=== PATIENT | female | born 2000 | race African-American/Black ===

== ENCOUNTER 2019-04-17 04:58 | Emergency (ER) | payer OTHER, SELFPAY ==
[2019-04-17] MEDS ORDERED: Ketorolac Tromethamine 30 MG/ML VIAL ONE (05:17)
== END 2019-04-17 05:45 | disposition home or self-care (01) ==
LOC: ERS 04:58
DX: J02.9 Acute pharyngitis, unspecified (principal); R59.0 Localized enlarged lymph nodes
CPT/HCPCS: 96372; J1885

== ENCOUNTER 2019-11-06 12:53 | Emergency (ER) | payer MEDICAID, SELFPAY ==
[2019-11-06 13:29] LABS: Bacteria/HPF 1+ HPF (None Seen); Bilirubin Negative (Negative); Blood, Urine 1+ (Negative); Clarity Clear (Clear); Glucose, Urine (Dipstick) Normal (Negative); Leukocyte Negative Leu/uL (Negative); Nitrite Negative (Negative); Pregnancy Test - Urine (BHCG) POSITIVE (Negative); Pregu Control Background? CLEAR/WHITE (CLR/WHITE); Pregu Control Bar Appear? YES (CONTROL BAR); Protein, Urine (Dipstick) 30 mg/dL (Neg-Trace); RBC/HPF 0-3 HPF (0-3); Specific Gravity 1.034 (1.002-1.036); Urobilinogen Normal mg/dL (Less than 2)
== END 2019-11-06 14:28 | disposition home or self-care (01) ==
LOC: ERS 12:53
DX: O99.89 Other specified diseases and conditions complicating pregnancy, childbirth and the puerperium (principal); R82.71 Bacteriuria; O99.331 Smoking (tobacco) complicating pregnancy, first trimester; F17.210 Nicotine dependence, cigarettes, uncomplicated; Z3A.01 Less than 8 weeks gestation of pregnancy
CPT/HCPCS: 81003; 81015; 81025; 99284

== ENCOUNTER 2019-11-09 16:32 | Emergency (ER) | payer MEDICAID, SELFPAY ==
[2019-11-09 17:13] LABS: #Basophils 0.1 thou/uL (0.0-0.2); #Eosinphils 0.2 thou/uL (0.0-0.7); #Lymphocytes 3.1 thou/uL (1.20-3.40); #Monocytes 0.5 thou/uL (0.11-0.59); #Neutrophils 2.8 thou/uL (1.40-6.50); %Basophils 1.1 % (0.0-1.0); %Eosinophils 2.7 % (0.0-10.0); %Lymphocytes 46.3 % (21.0-51.0); %Monocytes 7.4 % (0.0-10.0); %Neutrophils 42.4 % (42.0-75.0); Hemoglobin 13.2 g/dL (12.0-16.0); Mean Corpuscular HGB CONC 33.2 g/dL (32.0-36.0); Mean Corpuscular Hemoglobin 29.4 pg (27.0-31.0); Mean Corpuscular Volume 88.4 fL (78.0-98.0); Mean Platelet Volume 7.7 fL (7.4-10.4); Platelet Count 245 thou/uL (130-400); RBC Distribution Width 11.7 % (11.5-14.5); Red Blood Cell (RBC) Count 4.49 mill/uL (4.20-5.40); White Blood Cell (WBC) Count 6.6 thou/uL (4.8-10.8)
[2019-11-09 17:26] LABS: Bilirubin Negative (Negative); Blood, Urine Negative (Negative); Clarity Clear (Clear); Glucose, Urine (Dipstick) Normal (Negative); Leukocyte Negative Leu/uL (Negative); Nitrite Negative (Negative); Protein, Urine (Dipstick) Negative (Neg-Trace); Urobilinogen Normal mg/dL (Less than 2)
[2019-11-09 17:36] LABS: ALT (SGPT) 12 U/L (8-55); AST (SGOT) 14 U/L (5-34); Albumin 4.1 g/dL (3.5-5.0); Alkaline Phosphatase 58 U/L (40-110); Anion Gap 13 mmol/L (10-20); BUN (Urea Nitrogen) 9 mg/dL (7.0-18.7); Bilirubin, Total 0.4 mg/dL (0.2-1.2); Calc. Creatinine Clearance 0 mL/min (70-130); Calcium 9.1 mg/dL (7.8-10.44); Carbon Dioxide 23 mmol/L (22-29); Chloride 104 mmol/L (98-107); Estimated GFR-MDRD Greater than 90; Globulin 3.3 g/dL (2.4-3.5); Glucose 83 mg/dL (70-105); Potassium 3.4 mmol/L (3.5-5.1); Protein, Total 7.4 g/dL (6.0-8.3); Sodium 137 mmol/L (136-145)
[2019-11-09] MEDS ORDERED: Acetaminophen 500 MG TAB ONE (20:03)
--- NOTE | 2019-11-09 20:09 | ULT ---
TRANSABDOMINAL TRANSVAGINAL PELVIC ULTRASOUND DATE:: 11/09/2019 6:50 PM CLINICAL HISTORY: Cramping in early . COMPARISON: None. TECHNIQUE: Grayscale, color Doppler and spectral Doppler images were obtained of the pelvis see a tra nsabdominal transvaginal approach Uterus: Size: 8.6 x 4.2 x 5 cm. Mass: None Cervix: Within normal limits Endometrium: No intrauterine demonstrated. Endometrial Thickness: 13.2 mm Ovaries: Size: right measures 4.6 x 2.2 x 2.3 cm; left measures 2.8 x 2.0 x 1.7 cm Mass: 1.2 cm simple right ovarian cyst.. Flow: Normal Cul-de-sac: Minimal free fluid IMPRESSION: Findings consistent with of undetermined location. Findings may relate reflect early pregna ncy, ectopic or missed . Continued clinical and sonographic follow-up is recommended. Right ovarian cyst.
== END 2019-11-09 20:45 | disposition home or self-care (01) ==
LOC: ERS 16:32
DX: O99.89 Other specified diseases and conditions complicating pregnancy, childbirth and the puerperium (principal); R10.9 Unspecified abdominal pain; R11.0 Nausea; Z87.891 Personal history of nicotine dependence; Z79.899 Other long term (current) drug therapy; Z3A.01 Less than 8 weeks gestation of pregnancy
CPT/HCPCS: 36415; 76856; 80053; 81003; 84702; 85025

== ENCOUNTER 2020-04-01 13:59 | Outpatient (CLI) | payer OTHER ==
--- NOTE | 2020-04-01 15:18 | ULT ---
EXAM: OB ultrasound COMPARISON: None HISTORY: female patient. Evaluate anatomy and cervical length. TECHNIQUE: Multiplanar grayscale and color Doppler transabdominal sonographic images are obtained. FINDINGS: There is a single intrauterine gestation in variable presentation. Cardiac Doppler demonstr ates heart tones with a heart rate of 161 beats per minute. The placenta is located anteriorly without evidence of placenta previa. There is a normal amount of amniotic fluid with an am niotic fluid index of 17.1 centimeters. The cervical length based on transabdominal imaging measures 6.3 centimeters. biometry measurements: BPD 6.11 cm -- 24 weeks 6 days HC 23.15 cm -- 25 weeks 2 days AC 19.21 cm -- 24 weeks FL 4.89 cm -- 26 weeks 4 days The estimated gestational age by ultrasound is 25 weeks 2 days with an JIGNESH on07/13/2020. Gestational a ge by the last menstrual period is 25 weeks 3 days. The estimated weight by ultrasound is 762 g (1 pound, 11 ounces). This represents 24 percentile for weight. There is suggestion of a 4 chambered heart. The cerebellum is not well delineated on this examination .. The visualized portions of the spine, kidneys, urinary bladder, and cord insertion demonstrate a normal sonographic appearance. A three-vessel cord is not visualized, but there is flow on either side of the urinary bladder sugges ting a three-vessel cord.. No definite anomalies are seen. IMPRESSION: 1. Single intrauterine gestation in the presentation with heart tones documented. Estimated ges tational age by ultrasound is 25 weeks 2 days with JIGNESH on 07/13/2020. 2. Estimated weight is 762 g (1 pound, 2 ounces). 3. Amniotic fluid index is 17.1 centimeters.
== END 2020-04-01 14:00 | disposition home or self-care (01) ==
LOC: BICULT 13:59
PROVIDERS: ATTEND Family Medicine
DX: Z34.02 Encounter for supervision of normal first pregnancy, second trimester (principal); Z3A.25 25 weeks gestation of pregnancy
CPT/HCPCS: 76805

== ENCOUNTER 2020-04-02 01:23 | Emergency (ER) | payer OTHER | END 2020-04-02 02:13 | disposition home or self-care (01) | LOC: ERS 01:23 | DX: M25.511 Pain in right shoulder (principal); Z87.891 Personal history of nicotine dependence | CPT/HCPCS: 99283 ==

== ENCOUNTER 2020-04-28 10:23 | Emergency (ER) | payer OTHER ==
[~2020-04-28 10:23] MED LIST: Iopamidol-370 76% 500 ML 1 ML ONE
[2020-04-28] MEDS ORDERED: HYDROcodone/Acetaminophen 5/325 mg Tablet ONE (11:09)
[2020-04-28] MEDS ORDERED: Ondansetron PF 4 MG/2 ML Vial ONE (11:10)
[2020-04-28] MEDS ORDERED: Acetaminophen 500 MG TAB ONE (11:10)
[2020-04-28 11:28] LABS: #Basophils 0.1 thou/uL (0.0-0.2); #Eosinphils 0.3 thou/uL (0.0-0.7); #Lymphocytes 2.5 thou/uL (1.20-3.40); #Monocytes 0.7 thou/uL (0.11-0.59); #Neutrophils 4.9 thou/uL (1.40-6.50); %Basophils 1.3 % (0.0-1.0); %Eosinophils 3.9 % (0.0-10.0); %Lymphocytes 29.1 % (21.0-51.0); %Monocytes 7.8 % (0.0-10.0); %Neutrophils 57.8 % (42.0-75.0); Hemoglobin 12.5 g/dL (12.0-16.0); Mean Corpuscular HGB CONC 33.2 g/dL (32.0-36.0); Mean Corpuscular Volume 90.4 fL (78.0-98.0); Mean Platelet Volume 7.6 fL (7.4-10.4); Platelet Count 192 thou/uL (130-400); RBC Distribution Width 12.4 % (11.5-14.5); Red Blood Cell (RBC) Count 4.17 mill/uL (4.20-5.40); White Blood Cell (WBC) Count 8.5 thou/uL (4.8-10.8)
--- NOTE | 2020-04-28 11:29 | RAD ---
Exam: Chest one view HISTORY:Chest pain and shortness of breath. Comparison: None. FINDINGS: Cardiac silhouette: Normal Aorta: Unremarkable Pulmonary vessels: Normal Costophrenic angles: Clear LUNGS: No masses or consolidation. Pneumothorax: None Osseous abnormalities: None IMPRESSION: No acute cardiopulmonary process.
[2020-04-28 12:01] LABS: ALT (SGPT) 33 U/L (8-55); AST (SGOT) 17 U/L (5-34); Albumin 3.3 g/dL (3.5-5.0); Alkaline Phosphatase 85 U/L (40-110); Anion Gap 13 mmol/L (10-20); BUN (Urea Nitrogen) 12 mg/dL (7.0-18.7); Bilirubin, Total 0.2 mg/dL (0.2-1.2); Calc. Creatinine Clearance 0 mL/min (70-130); Carbon Dioxide 20 mmol/L (22-29); Chloride 105 mmol/L (98-107); Estimated GFR-MDRD Greater than 90; Globulin 3.4 g/dL (2.4-3.5); Glucose 86 mg/dL (70-105); Potassium 3.7 mmol/L (3.5-5.1); Protein, Total 6.7 g/dL (6.0-8.3); Sodium 134 mmol/L (136-145)
--- NOTE | 2020-04-28 12:40 | CT ---
CTA Angio Chest W WO Con 04/28/2020 12:02 PM Indication: Chest Pain Technique: Multiple CTA images were obtained of the thorax with IV contrast. 3-D rendering: MIP chu nstructed images were created and reviewed. Comparison: No relevant prior studies available. Findings: Pulmonary arteries: Timing of the contrast bolus limits evaluation of the segmental pulmonary arteri al branches. This definite central pulmonary embolus is demonstrated. Heart and Aorta: Normal appearing. Mediastinum:Normal appearing. No enlarged lymph nodes. Lungs:The lungs are clear. Pleural space: Clear. Upper Abdomen: No acute abnormality. Osseous Structures: No acute osseous abnormality. Soft tissues:No abnormality. Other findings:None. Impression: No central pulmonary embolus demonstrated.
[2020-04-28 13:51] LABS: Bilirubin Negative (Negative); Blood, Urine Negative (Negative); Clarity Clear (Clear); Glucose, Urine (Dipstick) Normal (Negative); Leukocyte Negative Leu/uL (Negative); Nitrite Negative (Negative); Protein, Urine (Dipstick) 10 mg/dL (Neg-Trace); Urobilinogen Normal mg/dL (Less than 2)
== END 2020-04-28 15:26 | disposition short-term general hospital (02) ==
LOC: ERS 10:23
DX: O16.3 Unspecified maternal hypertension, third trimester (principal); O99.89 Other specified diseases and conditions complicating pregnancy, childbirth and the puerperium; R07.9 Chest pain, unspecified; R10.9 Unspecified abdominal pain; Z3A.29 29 weeks gestation of pregnancy; Z87.891 Personal history of nicotine dependence
CPT/HCPCS: 36415; 71045; 71275; 80053; 81003; 82570; 84156; 84484; 85025; 85379; 93005; 96361; 96374; J2405; Q9967

== ENCOUNTER 2020-04-28 15:08 | Day surgery (SDC) | payer OTHER ==
[2020-04-28] MEDS ORDERED: hydrALAZINE 20 MG/ML VIAL SLOW IVP PRN (15:49)
[2020-04-28 16:08] VITALS: TEMP 98.2; BMI 41.9
--- NOTE | 2020-04-29 11:54 | SS ---
DATE OF ADMISSION: 04/28/2020 DATE OF DISCHARGE: 04/28/2020 Labor and Delivery Triage note REGULAR PHYSICIAN: Parth Carney MD EVALUATING PHYSICIAN: Galen Martínez MD CHIEF COMPLAINT: Shortness of breath, chest pain. HISTORY OF PRESENT ILLNESS: Ms. Mena is a 20-year-old black, G1, P0 with an estimated date of confinement of 07/12/2020, who presented to the ER complaining of chest pain and shortness of breath. Initial evaluation in the emergency room showed an elevated blood pressure. This quickly resolved with further blood pressure monitoring. Her workup in the emergency room has been negative, and she is brought to Labor and Delivery for monitoring. She denies ruptured membranes, vaginal bleeding, or uterine contractions. Her care has been with Dr. Carney without complications. PAST MEDICAL HISTORY: None. PAST SURGICAL HISTORY: [place] teeth. CURRENT MEDICATIONS: vitamins. ALLERGIES: NO KNOWN ALLERGIES. SOCIAL HISTORY: Denies tobacco, alcohol, or drug use. FAMILY HISTORY: Unremarkable. REVIEW OF SYSTEMS: Denies nausea, vomiting, fever, chills, blurry vision, or headache. PHYSICAL EXAMINATION: VITAL SIGNS: Blood pressures in labor and delivery are 129/61 and 95/51. GENERAL: She is pleasant and in no acute distress. She states she feels much better and is no longer having symptoms. ABDOMEN: Soft, nontender, and gravid. PELVIC: Deferred. heart rate tracing is stable. There are no decelerations. No significant uterine contractions are seen. LABORATORY DATA: White count 8.5, hemoglobin and hematocrit of 12.5 and 37.7. Platelet count 192,000. D-dimer 6.89, potassium 3.7, creatinine 0.69, glucose 86. Total bilirubin 0.2, AST and ALT are 17 and 33 respectively. Urine shows a random total protein of 13 with a urine creatinine of 82.5, giving a ratio of 0.16. IMAGING: Chest x-ray is clear. No evidence of active process. She also had a CT angiogram, which showed no evidence of pulmonary edema. ASSESSMENT: 1. 29-2/7-week intrauterine . 2. No evidence of acute cardiopulmonary process at this time. 3. Suspect reflux as potential etiology. PLAN: The patient will be dismissed to home. She was told to begin [id number] Pepcid 1 to 2 tablets twice a day along with cautions regarding fatty or spicy foods. She voiced understanding of her discharge instructions and was sent home in good condition. Job ID: [id number]
== END 2020-04-28 17:15 | disposition home or self-care (01) ==
LOC: L&D/OP 15:08
PROVIDERS: ATTEND Family Medicine
DX: O99.89 Other specified diseases and conditions complicating pregnancy, childbirth and the puerperium (principal); R06.02 Shortness of breath; R07.9 Chest pain, unspecified; Z3A.29 29 weeks gestation of pregnancy
CPT/HCPCS: 99282

== ENCOUNTER 2020-07-10 10:57 | Outpatient (CLI) | payer OTHER ==
[2020-07-11 12:36] LABS: SARS-CoV-2 MS2 Positive; SARS-CoV-2 N Gene Negative; SARS-CoV-2 S Gene Negative; SARS-CoV-2 by NAA Not Detected (NotDetected); SARS-CoV-2 orf1ab Negative
== END 2020-07-10 10:58 | disposition home or self-care (01) ==
LOC: LABSCS 10:57
PROVIDERS: ATTEND Family Medicine
DX: Z20.828 Contact with and (suspected) exposure to other viral communicable diseases (principal)
CPT/HCPCS: 87635; U0003

== ENCOUNTER 2020-07-19 23:44 | Emergency (ER) | payer OTHER ==
[2020-07-20 00:58] LABS: Bacteria/HPF None Seen HPF (None Seen); Bilirubin Negative (Negative); Blood, Urine 3+ (Negative); Clarity Clear (Clear); Glucose, Urine (Dipstick) Normal (Negative); Ketone, Urine Negative (Negative); Leukocyte 500 Leu/uL (Negative); Nitrite Negative (Negative); Protein, Urine (Dipstick) Negative (Neg-Trace); RBC/HPF 21-50 HPF (0-3); Specific Gravity, Urine 1.016 (1.002-1.036); Squamous Epithelial 0-3 HPF (0-3); Urobilinogen 3 mg/dL (Less than 2); WBC/HPF 21-50 HPF (0-3)
[2020-07-20] MEDS ORDERED: Labetalol HCl 100 MG/20 ML VIAL ONE (01:12)
[2020-07-20] MEDS ORDERED: Metoclopramide HCl 10 MG/2 ML VIAL ONE (01:12)
[2020-07-20] MEDS ORDERED: Ketorolac Tromethamine 30 MG/ML VIAL ONE (01:12)
[2020-07-20] MEDS ORDERED: Metoclopramide 10 MG/10 ML UDCUP ONE (01:12)
== END 2020-07-20 02:40 | disposition home or self-care (01) ==
LOC: ERS 23:44
DX: O13.5 Gestational [pregnancy-induced] hypertension without significant proteinuria, complicating the puerperium (principal); Z87.891 Personal history of nicotine dependence
CPT/HCPCS: 81003; 81015; J1885; J2765

== ENCOUNTER 2020-07-20 02:42 | Observation (INO) | payer OTHER ==
[2020-07-20 02:54] VITALS: BMI 46.4
[2020-07-20] MEDS ORDERED: Acetaminophen 500 MG TAB PO PRN (03:43)
[2020-07-20] MEDS ORDERED: hydrALAZINE 20 MG/ML VIAL SLOW IVP PRN (03:43)
[2020-07-20] MEDS ORDERED: Promethazine HCl 25 MG/ML VIAL IM PRN (03:43)
[2020-07-20] MEDS ORDERED: Ondansetron PF 4 MG/2 ML Vial IVP PRN (03:43)
--- NOTE | 2020-07-20 03:55 | PDOC.FPRHP ---
- History of Present Illness Chief Complaint: Headache, elevated BP History of Present Illness: 20yo , post day 6 following , presented to the ED tonight with complaint of headache and elevated BP. Pt states that she has been having a headache for the past 3 days that is located between her eyes and resolves with tylenol. Tonight when she complained about it to her mother she recommended checking her BP which was in the 150's systolic. Pt denies ever having problems with elevated blood pressures before. She did not receive Mg during her hospitalization for her delivery. She has never been on BP medications. She denies any changes to her vision, increased swelling, or any neurologic symptoms. In the ED she had a BP of 161/94 and received 10mg Labetalol, toradol, and metoclopromide with subsequent resolution of her headache. She was then brought to L&D at request of the laborist for further workup and monitoring of her BPs. Currently she is asymptomatic without any complaints. - Allergies/Adverse Reactions Allergies Allergy/AdvReac Type Severity Reaction Status Date / Time No Known Allergies Allergy Verified 07/13/20 22:51 - Home Medications Medication Instructions Recorded Confirmed Type Vits96/Iron Fum/Folic 1 tab PO DAILY 07/13/20 07/20/20 History [ Tablet] Acetaminophen [Tylenol Extra 1,000 mg PO Q6HR PRN 07/20/20 07/20/20 History Strength] Labetalol [Normodyne] 100 mg PO BID #60 tab 07/20/20 Rx - History PMHx: None PSHx: [place] teeth extraction FHx: None Social: Living with mother and child. Denies any alcohol, tobacco, or drugs - Review of Systems General: denies: fever/chills, weight/appetite/sleep changes Eyes: denies: eye pain, vision changes ENT: denies: nasal congestion, rhinorrhea Respiratory: denies: cough, shortness of breath Cardiovascular: denies: chest pain, palpitation, edema Gastrointestinal: denies: nausea, vomiting, diarrhea, constipation, abdominal pain Skin: denies: rashes, lesions Musculoskeletal: denies: pain, tenderness Neurological: reports: other (+headache). denies: numbness, syncope, seizure, weakness Psychological: denies: anxiety, depression - Vital signs BP: 136/73 HR: 80 RR: 18 Tmax: 98.5 - Physical Exam Constitutional: NAD, awake, alert and oriented, well developed HEENT: EOMI, grossly normal vision, grossly normal hearing, MMM Neck: supple, no JVD Heart: RRR, normal S1/S2, no murmurs/rubs/gallops Lungs: CTAB, no respiratory distress, good air movement Abdomen: soft, non-tender, bowel sounds present Musculoskeletal: normal structure, normal tone, ROM grossly normal Neurological: no focal deficit, DTRs 2+ (patellar), other (no pedal clonus) Skin: no rash/lesions, capillary refill <2 seconds Heme/Lymphatic: no unusual bruising or bleeding, no purpura Psychiatric: normal mood and affect, good judgment and insight, intact recent and remote memory FMR H&P: Results - Labs Result Diagrams: 07/20/20 04:17 07/20/20 04:17 FMR H&P: A/P - Plan Elevated BP in post patient - R/O Preeclampsia - one documented severe range pressure of 161/94 - originally had headache, now resolved after toradol and metoclopramide - pre-e labs: urine prot/cr ration, CBC, CMP ordered Plan: will start procardia xl 30 mg PO. will admit to obs and monitor BP and sx. if she develop another severe BP or worsening signs/sx consistent with pre-e w ill start mg. Aleksandar Robles DO - PGY2 FMR H&P: Upper Level - Plan Date/Time: 07/20/20 0350 I, Dr Reveles, agree with findings/plan as outlined by Dr Robles. Pertinent changes/additions are listed here. Dr Martínez will be assuming care.
[2020-07-20] MEDS ORDERED: NIFEdipine XL 30 MG TAB PO SCH ×2 (04:00→21:00)
[2020-07-20 04:01] VITALS: TEMP 98.7
[2020-07-20 04:14] VITALS: BP 153/72
[2020-07-20 04:25] LABS: #Eosinphils 0.5 thou/uL (0.0-0.7); #Lymphocytes 2.4 thou/uL (1.20-3.40); #Monocytes 0.6 thou/uL (0.11-0.59); #Neutrophils 6.5 thou/uL (1.40-6.50); %Basophils 0.5 % (0.0-1.0); %Eosinophils 5.4 % (0.0-10.0); %Lymphocytes 23.7 % (21.0-51.0); %Monocytes 6.2 % (0.0-10.0); %Neutrophils 64.2 % (42.0-75.0); Mean Corpuscular HGB CONC 32.7 g/dL (32.0-36.0); Mean Corpuscular Hemoglobin 29.9 pg (27.0-31.0); Mean Corpuscular Volume 91.5 fL (78.0-98.0); Mean Platelet Volume 7.6 fL (7.4-10.4); Platelet Count 227 thou/uL (130-400); RBC Distribution Width 12.9 % (11.5-14.5); Red Blood Cell (RBC) Count 4.02 mill/uL (4.20-5.40); White Blood Cell (WBC) Count 10.1 thou/uL (4.8-10.8)
[2020-07-20 04:28] LABS: Protein, Urine Random Quant Less than 10 mg/dL (1-14)
[2020-07-20 04:52] LABS: ALT (SGPT) 29 U/L (8-55); AST (SGOT) 13 U/L (5-34); Albumin 3.2 g/dL (3.5-5.0); Alkaline Phosphatase 133 U/L (40-110); Anion Gap 14 mmol/L (10-20); BUN (Urea Nitrogen) 15 mg/dL (7.0-18.7); Bilirubin, Total 0.4 mg/dL (0.2-1.2); Calc. Creatinine Clearance 217 mL/min (70-130); Calcium 8.6 mg/dL (7.8-10.44); Carbon Dioxide 22 mmol/L (22-29); Chloride 106 mmol/L (98-107); Estimated GFR-MDRD Greater than 90; Globulin 3.2 g/dL (2.4-3.5); Glucose 81 mg/dL (70-105); Potassium 3.7 mmol/L (3.5-5.1); Protein, Total 6.4 g/dL (6.0-8.3); Sodium 138 mmol/L (136-145)
--- NOTE | 2020-07-20 09:57 | PDOC.PP ---
Post Progress Note Post Day #: 6 Subjective: Patient reports feeling well this AM. Denies any recurrent HAs since admission. Denies any vision changes, chest pain or edema. Per chart review all BPs have under severe range since arrival to the floor. PO intake tolerated: yes Ambulation: yes Vital Signs (12 hours) Temp Pulse Resp BP BP 07/20/20 04:12 77 153/72 H 07/20/20 03:58 98.7 F 07/20/20 03:45 98.7 F 07/20/20 02:51 98.5 F 80 18 136/73 Weight Weight 115.212 kg - Physical Examination General: NAD Respiratory: non-labored breathing Neurological: no gross focal deficits Psychiatric: A&Ox3, normal affect Result Diagrams: 07/20/20 04:17 07/20/20 04:17 (1) Elevated blood pressure reading Code(s): R03.0 - ELEVATED BLOOD-PRESSURE READING, W/O DIAGNOSIS OF HTN Status: Acute - Assessment/Plan 20YO who is PP day #6 admitted for severe range blood pressures & pre- eclampsia workup. Elevated BPs, concern for pre-e: - Labwork negative & no severe range pressures since arrival to the floor. Low suspicion for pre-e. No elevated BPs since nifedipine XL 30mg @ ~0400. No pre-e symtpoms since arrival to the floor as well. Discussed with patient possibility of being discharged with close follow-up & home BP monitoring & patient agreeable to this. PP day #6: - Aware, continue routine PP care. Dispo: Will d/c home with close follow-up w/ PCP next week & instructions to continue home BP monitoring as noted above. Addendum - Attending - Attending Attestation Date/Time: 07/20/20 1038 I personally evaluated the patient and discussed the management with Dr. Florez. PP patient with single elevated BP and normal labs, no evidence of PIH. Home on Labetalol with BP checks. I agree with the History, Examination, Assessment and Plan documented above.
== END 2020-07-20 10:25 | disposition home or self-care (01) ==
LOC: L&D/OP 02:42 → L&D 03:50
PROVIDERS: ADMIT Family Medicine; ATTEND Family Medicine
DX: O99.89 Other specified diseases and conditions complicating pregnancy, childbirth and the puerperium (principal); R03.0 Elevated blood-pressure reading, without diagnosis of hypertension; R51 Headache; Z79.899 Other long term (current) drug therapy
CPT/HCPCS: 36415; 80053; 81003; 81015; 82570; 84156; 85025; 96365; 96375; 99285; G0378; J1885; J2765

== ENCOUNTER 2020-10-13 17:34 | Emergency (ER) | payer OTHER ==
--- NOTE | 2020-10-13 18:05 | RAD ---
Chest AP view INDICATION: Left-sided chest pain COMPARISON: April 28, 2020 FINDINGS: Lungs: The lungs are clear Cardiac silhouette: The cardiomediastinal silhouette appears within normal limits. Pulmonary vasculature: Normal Pleural spaces: No pleural effusion or pneumothorax is demonstrated. Upper abdomen: No abnormality seen. Osseous structures: No acute osseous abnormality. Additional findings: None. IMPRESSION: No acute cardiopulmonary abnormality.
[2020-10-13 18:13] LABS: #Basophils 0.1 thou/uL (0.0-0.2); #Eosinphils 0.6 thou/uL (0.0-0.7); #Lymphocytes 3.6 thou/uL (1.20-3.40); #Monocytes 0.6 thou/uL (0.11-0.59); #Neutrophils 3.7 thou/uL (1.40-6.50); %Basophils 0.9 % (0.0-1.0); %Eosinophils 6.9 % (0.0-10.0); %Lymphocytes 41.9 % (21.0-51.0); %Monocytes 6.8 % (0.0-10.0); %Neutrophils 43.5 % (42.0-75.0); Hemoglobin 13.2 g/dL (12.0-16.0); Mean Corpuscular Hemoglobin 29.5 pg (27.0-31.0); Mean Corpuscular Volume 89.1 fL (78.0-98.0); Mean Platelet Volume 7.2 fL (7.4-10.4); Platelet Count 257 thou/uL (130-400); RBC Distribution Width 12.8 % (11.5-14.5); Red Blood Cell (RBC) Count 4.48 mill/uL (4.20-5.40); White Blood Cell (WBC) Count 8.6 thou/uL (4.8-10.8)
[2020-10-13 18:34] LABS: ALT (SGPT) 19 U/L (8-55); AST (SGOT) 14 U/L (5-34); Albumin 3.9 g/dL (3.5-5.0); Alkaline Phosphatase 64 U/L (40-110); Anion Gap 14 mmol/L (10-20); BUN (Urea Nitrogen) 12 mg/dL (7.0-18.7); Bilirubin, Total 0.2 mg/dL (0.2-1.2); Calc. Creatinine Clearance 0 mL/min (70-130); Calcium 8.7 mg/dL (7.8-10.44); Carbon Dioxide 22 mmol/L (22-29); Chloride 105 mmol/L (98-107); Globulin 3.6 g/dL (2.4-3.5); Glucose 88 mg/dL (70-105); Potassium 4.2 mmol/L (3.5-5.1); Protein, Total 7.5 g/dL (6.0-8.3); Sodium 137 mmol/L (136-145)
--- NOTE | 2020-10-18 16:51 | EKG ---
Test Reason : Blood Pressure : / mmHG Vent. Rate : 076 BPM Atrial Rate : 076 BPM P-R Int : 148 ms QRS Dur : 086 ms QT Int : 368 ms P-R-T Axes : 028 022 007 degrees QTc Int : 414 ms Normal sinus rhythm Normal ECG Confirmed by JOSUÉ MALONEY ([id number]), subeditor DESMOND MARK ([id number]) on 10/18/2020 4:51:18 PM Referred By: Confirmed By:JOSUÉ Freedman
== END 2020-10-13 20:21 | disposition home or self-care (01) ==
LOC: ERS 17:34
DX: R07.89 Other chest pain (principal); Z87.891 Personal history of nicotine dependence
CPT/HCPCS: 36415; 71045; 80053; 85025; 93005

== ENCOUNTER 2021-01-27 09:35 | Outpatient (CLI) | payer OTHER | END 2021-01-27 09:36 | disposition home or self-care (01) | LOC: BICULT 09:35 | PROVIDERS: ATTEND Family Medicine | DX: O09.92 Supervision of high risk pregnancy, unspecified, second trimester (principal); Z3A.20 20 weeks gestation of pregnancy | CPT/HCPCS: 76805 ==

== ENCOUNTER 2021-06-27 22:26 | Emergency (ER) | payer OTHER ==
[2021-06-27 23:12] LABS: #Lymphocytes 3.6 thou/uL (1.20-3.40); #Monocytes 0.7 thou/uL (0.11-0.59); #Neutrophils 5.1 thou/uL (1.40-6.50); %Lymphocytes 34.2 % (21.0-51.0); %Monocytes 6.7 % (0.0-10.0); %Neutrophils 49.2 % (42.0-75.0); Hemoglobin 12.8 g/dL (12.0-16.0); Mean Corpuscular HGB CONC 33.1 g/dL (32.0-36.0); Mean Corpuscular Volume 87.5 fL (78.0-98.0); Mean Platelet Volume 7.6 fL (7.4-10.4); Platelet Count 243 thou/uL (130-400); RBC Distribution Width 12.9 % (11.5-14.5); Red Blood Cell (RBC) Count 4.41 mill/uL (4.20-5.40); White Blood Cell (WBC) Count 10.4 thou/uL (4.8-10.8)
[2021-06-27 23:24] LABS: Bilirubin Negative (Negative); Blood, Urine 1+ (Negative); Clarity Clear (Clear); Glucose, Urine (Dipstick) Normal (Negative); Ketone, Urine Negative (Negative); Leukocyte 250 Leu/uL (Negative); Nitrite Negative (Negative); Protein, Urine (Dipstick) 10 mg/dL (Neg-Trace); Specific Gravity, Urine 1.029 (1.002-1.036); WBC/HPF 21-50 HPF (0-3); pH, Urine 5.5 (5.0-9.0)
[2021-06-27 23:25] LABS: Bacteria/HPF 1+ HPF (None Seen)
[2021-06-27 23:26] LABS: Pregnancy Test - Urine (BHCG) Negative (Negative); Pregu Control Background? CLEAR/WHITE (CLR/WHITE); Pregu Control Bar Appear? YES (CONTROL BAR); Specific Gravity 1.029 (1.002-1.036)
[2021-06-27 23:34] LABS: ALT (SGPT) 17 U/L (8-55); AST (SGOT) 15 U/L (5-34); Albumin 3.7 g/dL (3.5-5.0); Alkaline Phosphatase 97 U/L (40-110); Anion Gap 13 mmol/L (10-20); BUN (Urea Nitrogen) 11 mg/dL (7.0-18.7); Bilirubin, Total 0.3 mg/dL (0.2-1.2); Calc. Creatinine Clearance 0 mL/min (70-130); Calcium 9.2 mg/dL (7.8-10.44); Carbon Dioxide 26 mmol/L (22-29); Chloride 105 mmol/L (98-107); Globulin 3.8 g/dL (2.4-3.5); Glucose 93 mg/dL (70-105); Lipase 27 U/L (8-78); Protein, Total 7.5 g/dL (6.0-8.3); Sodium 140 mmol/L (136-145)
== END 2021-06-28 00:36 | disposition home or self-care (01) ==
LOC: ERS 22:26
DX: N39.0 Urinary tract infection, site not specified (principal)
CPT/HCPCS: 36415; 80053; 81003; 81015; 81025; 83690; 85025; 99284

== ENCOUNTER 2023-06-18 11:02 | Emergency (ER) | payer OTHER ==
[2023-06-18] MEDS ORDERED: Acetaminophen 500 MG TAB ONE (11:11)
[2023-06-18] MEDS ORDERED: Dexamethasone 10 MG/ML VIAL ONE (11:17)
== END 2023-06-18 11:28 | disposition home or self-care (01) ==
LOC: ERS 11:02
DX: J02.0 Streptococcal pharyngitis (principal)
CPT/HCPCS: 99283; J1100

== ENCOUNTER 2023-07-04 07:52 | Emergency (ER) | payer OTHER ==
[2023-07-04] MEDS ORDERED: predniSONE 20 MG TAB ONE ×2 (08:24→08:25)
[2023-07-04 09:05] LABS: SARS-CoV-2 NAA Rapid Test DETECTED (NotDetected)
== END 2023-07-04 08:13 | disposition home or self-care (01) ==
LOC: ERS 07:52
DX: U07.1 COVID-19 (principal); Z20.822 Contact with and (suspected) exposure to COVID-19
CPT/HCPCS: 71045; J7512

== ENCOUNTER 2023-08-09 16:31 | Emergency (ER) | payer OTHER ==
[2023-08-09 17:08] LABS: #Eosinphils 0.2 thou/uL (0.0-0.7); #Monocytes 0.5 thou/uL (0.11-0.59); #Neutrophils 0.9 thou/uL (1.40-6.50); %Basophils 0.3 % (0.0-1.0); %Eosinophils 4.8 % (0.0-10.0); %Lymphocytes 58.2 % (21.0-51.0); %Monocytes 13.4 % (0.0-10.0); %Neutrophils 23.3 % (42.0-75.0); Hematocrit 38.8 % (36.0-47.0); Hemoglobin 12.1 g/dL (12.0-16.0); Mean Corpuscular HGB CONC 31.2 g/dL (32.0-36.0); Mean Corpuscular Hemoglobin 25.2 pg (27.0-31.0); Mean Corpuscular Volume 80.8 fl (78.0-98.0); Mean Platelet Volume 9.5 fL (7.4-10.4); Platelet Count 235 10x3/uL (130-400); RBC Distribution Width 13.8 % (11.5-14.5)
[2023-08-09] MEDS ORDERED: Ondansetron ODT 4 MG TAB ONE (17:18)
[2023-08-09 17:34] LABS: ALT (SGPT) 25 U/L (8-55); AST (SGOT) 27 U/L (5-34); Albumin 4.1 g/dL (3.5-5.0); Alkaline Phosphatase 182 U/L (40-110); Anion Gap 12 mmol/L (10-20); BUN (Urea Nitrogen) 9 mg/dL (7.0-18.7); Bilirubin, Total 0.2 mg/dL (0.2-1.2); Calc. Creatinine Clearance 0 mL/min (70-130); Calcium 9.5 mg/dL (7.8-10.44); Carbon Dioxide 22 mmol/L (22-29); Chloride 106 mmol/L (98-107); Estimated GFR 126; Globulin 3.7 g/dL (2.4-3.5); Glucose 95 mg/dL (70-105); Potassium 4.2 mmol/L (3.5-5.1); Protein, Total 7.8 g/dL (6.0-8.3); Sodium 136 mmol/L (136-145)
[2023-08-09 17:55] LABS: Bilirubin Negative (Negative); Blood, Urine 1+ (Negative); CAUTI Indications for Culture Pelvic or flank pain; Clarity Turbid (Clear); Glucose, Urine (Dipstick) Normal (Negative); Ketone, Urine Negative (Negative); Leukocyte 500 Leu/uL (Negative); Nitrite Negative (Negative); Protein, Urine (Dipstick) Negative (Neg-Trace); WBC/HPF 21-50 HPF (0-3)
[2023-08-09 17:57] LABS: Bacteria/HPF 1+ HPF (None Seen); Pregnancy Test - Urine (BHCG) Negative (Negative); Pregu Control Background? CLEAR/WHITE (CLR/WHITE); Pregu Control Bar Appear? YES (CONTROL BAR)
[2023-08-09 17:58] LABS: Urine Culture Reflex Yes Yes
== END 2023-08-09 18:34 | disposition home or self-care (01) ==
LOC: ERS 16:31
DX: N39.0 Urinary tract infection, site not specified (principal); R11.2 Nausea with vomiting, unspecified
CPT/HCPCS: 36415; 80053; 81001; 81025; 85025; 87086; 99284; Q0162

== ENCOUNTER 2024-08-16 17:51 | Emergency (ER) | payer OTHER ==
[2024-08-16] MEDS ORDERED: Ibuprofen 200 MG TAB ONE (18:19)
[2024-08-16] MEDS ORDERED: Dexamethasone 10 MG/ML VIAL ONE (18:19)
== END 2024-08-16 20:07 | disposition home or self-care (01) ==
LOC: ERS 17:51
DX: B34.9 Viral infection, unspecified (principal); F17.210 Nicotine dependence, cigarettes, uncomplicated
CPT/HCPCS: 87081; 87428; 87430; 99283; J1100

== ENCOUNTER 2024-09-20 08:33 | Emergency (ER) | payer BC, OTHER ==
[2024-09-20] MEDS ORDERED: Acetaminophen 500 MG TAB ONE (09:07)
[2024-09-20 09:40] LABS: #Basophils Less than 0.03 10x3/uL (0.0-0.2); #Eosinophils Less than 0.03 10x3/uL (0.0-0.7); %Basophils 0.3 % (0.0-1.0); %Lymphocytes 33.2 % (21.0-51.0); %Monocytes 13.2 % (0.0-10.0); Hematocrit 38.1 % (36.0-47.0); Mean Corpuscular HGB CONC 31.5 g/dL (32.0-36.0); Mean Corpuscular Hemoglobin 24.9 pg (27.0-31.0); Mean Platelet Volume 9.9 fL (7.4-10.4); Platelet Count 190 10x3/uL (130-400); RBC Distribution Width 15.1 % (11.5-14.5); Red Blood Cell (RBC) Count 4.82 mill/uL (4.20-5.40)
[2024-09-20 10:00] LABS: BHCG - Serum Negative (NEGATIVE); Pregs Control Background? CLEAR/WHITE (CLR/WHITE); Pregs Control Bar Appear? YES (CONTROL BAR)
[2024-09-20 10:05] LABS: ALT (SGPT) 19 U/L (8-55); AST (SGOT) 26 U/L (5-34); Albumin 3.6 g/dL (3.5-5.0); Alkaline Phosphatase 117 U/L (40-110); Anion Gap 13 mmol/L (10-20); BUN (Urea Nitrogen) 8 mg/dL (7.0-18.7); Bilirubin, Total 0.4 mg/dL (0.2-1.2); Calc. Creatinine Clearance 0 mL/min (70-130); Calcium 8.9 mg/dL (7.8-10.44); Carbon Dioxide 21 mmol/L (22-29); Chloride 101 mmol/L (98-107); Estimated GFR 104; Globulin 4.6 g/dL (2.4-3.5); Glucose 98 mg/dL (70-105); Potassium 3.6 mmol/L (3.5-5.1); Protein, Total 8.2 g/dL (6.0-8.3); Sodium 131 mmol/L (136-145)
== END 2024-09-20 11:04 | disposition home or self-care (01) ==
LOC: ERS 08:33
DX: J10.1 Influenza due to other identified influenza virus with other respiratory manifestations (principal); F17.210 Nicotine dependence, cigarettes, uncomplicated
CPT/HCPCS: 71045; 80053; 83605; 84703; 85025; 87081; 87428; 87430

== ENCOUNTER 2025-06-27 16:25 | Emergency (ER) | payer OTHER ==
[2025-06-27] MEDS ORDERED: Lidocaine 1% PF 5 ML VIAL ONE (16:53)
== END 2025-06-27 17:42 | disposition home or self-care (01) ==
LOC: ERS 16:25
DX: S61.219D Laceration without foreign body of unspecified finger without damage to nail, subsequent encounter (principal); F17.210 Nicotine dependence, cigarettes, uncomplicated; X58.XXXD Exposure to other specified factors, subsequent encounter
CPT/HCPCS: 99282